=== PATIENT | male | born 1935 | race Caucasian/White ===

== ENCOUNTER 2020-09-01 15:28 | Inpatient (IN) | payer MEDICARE ==
[~2020-09-01] VITALS: Ht 177.8 cm; Wt 95.3 kg
--- NOTE | ~2020-09-01 | HEMODYNAMI ---
PATIENT:OLIVIER REID MEDICAL RECORD: [id number] : 33 LOCATION:D.MS [facility]9 ADMISSION DATE: 09/01/20 Generatedon:110:36 Patient name: OLIVIER REID Patient #: [id number] SSN: [id number] : 1935 Date of study: 09/04/2020 Page: Of Hemodynamic Procedure Report Patient Data Patient Demographics Procedure consent was obtained First Name: OLIVIER Gender: Male Last Name: JEANETTE : 1935 Patient #: [id number] Age: 85 year(s) Race: SSN: [id number] Additional ID: [id number] Contact details Address: [address] [place] [address] State: [place] City: [place] Zip code: [address] Past Medical History Allergies: No known allergies Admission Admission Data Admission Date: 09/01/2020 Admission Time: 19:10 Arrival Date: 09/04/2020 Arrival Time: 0:00 Admit Source: Other Insurance Payor: Medicare Room #: [id number] [facility] #: [id number] Height (in.): 70 BSA: 2.13 (m2) Height (cm.): 177.8 BMI: 30.19 (kg/m2) Weight (lbs.): 210.43 Weight (kg.): 95.45 Lab Results Lab Result Date: 09/04/2020 Lab Result Time: 0:00 Biochemistry Name Units Result Min Max BUN mg/dl 23 --(----)-* 7 18 CK-MB ng/ml 0.7 --(*---)-- 0 3.6 Creatinine mg/dl 1.6 --(----)-* 0.6 1.3 eGFR ml/min 44 *-(----)-- 90 120 NONAFRICAN Troponin l ng/ml 0.082 --(----)-* 0 0.06 CBC Name Units Result Min Max Hematocrit % 49 --(--*-)-- 42 54 Hemoglobin g/dl 15.8 --(--*-)-- 13.5 17.5 Procedure Procedure Types Cath Procedure Diagnostic Procedure [facility] w/Coronaries Sedation Charges Moderate Sedation 10-24 minutes Procedure Description Procedure Date Procedure Date: 09/04/2020 Procedure Start Time: 10:23 Procedure End Time: 10:35 Procedure Staff Name Function Alden Glasgow MD Performing Physician Deonte Evans RN Nurse Arelis Mendoza RT Scrub Linsey Garcia RT Monitor Procedure Data Cath Procedure Fluoroscopy Diagnostic fluoroscopy Total fluoroscopy Time: 1.4 time: 1.4 min min Diagnostic fluoroscopy Total fluoroscopy dose: 582 dose: 582 mGy mGy Contrast Material Contrast Material Type Amount (ml) Isovue 370 60 Entry Location Entry Primary Successful Side Size Upsize Upsize Entry Closure Succes sful Closure Location (Fr) 1 (Fr) 2 (Fr) Remarks Device Remarks Femoral Right 5 Fr Exoseal artery Estimated blood loss: 5 ml Diagnostic catheters Device Type Used For End Catheter Placement MULTIPACK JL 4.0 5Fr Procedure catheter DIAGNOSTIC JL 5 5Fr Procedure catheter ([id number]) MULTIPACK 3DRC 5Fr Procedure catheter MULTIPACK Pigtail 5 Fr Procedure catheter Procedure Complications No complications Procedure Medications Medication Administration Route Dosage 0.9% NaCl I.V. 100 ml/hr Oxygen etCO2 Nasal cannula 2 l/min Heparin Flush Bag added to field 2 bags (1000units/500ml NS) Lidocaine 2% added to field 20 Versed I.V. 1 mg Hemodynamics Rest BSA: 2.13 (m2) HGB: 15.8 (g/dl) O2 Consumption: Estimated: 251.86 (ml/min) O2 Co nsumption indexed: Estimated:118.24 (ml/min/m) Heart Rate: 83 (bpm) Pressure Samples Time Site Value (mmHg) Purpose Heart Use Rate(bpm) 10:31 AO 123/72(101) Pullback 79 Gradients Valve Time Site Site 2 Mean SEP/DFP Peak To Heart Use 1 (mmHg) (sec/min) Peak Rate (mmHg) (bpm) Aortic 10:31 LV AO 58 17 79 123/72(101) Calculations Valve P-P Mean Valve Index Valve Source Name Gradient Area Flow (cm2) Aortic 58 58 Snapshots Pre Cath Intra NCS Post Cath Vital Signs Time Heart Resp SPO2 etCO2 NIBP (mmHg) Rhythm Pain Sedation Rate (ipm) (%) (mmHg) Status Level (bpm) 10:11:43 72 29 99 0 117/82(94) NSR 0 (11) 10(A) , No pain 10:15:45 92 31 99 0 125/93(107) NSR 0 (11) 10(A) , No pain 10:19:53 79 28 92 0 120/76(91) NSR 0 (11) 10(A) , No pain 10:23:58 79 34 95 0 110/84(94) NSR 0 (11) 10(A) , No pain 10:28:04 79 25 97 18.1 114/71(87) NSR 0 (11) 9(A) , No pain 10:32:10 82 25 92 14.3 109/75(90) NSR 0 (11) 10(A) , No pain 10:36:09 97 37 93 0 124/88(103) NSR 0 (11) 10(A) , No pain Medications Time Medication Route Dose Verified Delivered Reason Notes Eff ectiveness by by 10:10:10 0.9% NaCl I.V. 100 Deonte Deonte Per ml/hr Nathan Evans physician RN RN 10:10:19 Oxygen etCO2 2 Deonte Deonte for low 02 Nasal l/min Nathan Evans sats cannula RN RN 10:10:30 Heparin Flush added 2 Deonte Deonte used for Bag to bags Nathan Evans procedure (1000units/500ml field RN RN NS) 10:10:42 Lidocaine 2% added 20ml Deonte Deonte for local to vial Nathan Evans anesthetic field RN RN 10:25:23 Versed I.V. 1 mg Deonte Deonte for Lorigan Nathan sedation RN caregiver services home Log Time Note 9:26:57 Informed consent obtained and on chart 9:27:15 Diagnostic Cath Status : Urgent 9:28:02 Lab Result : CK-MB 0.7 ng/ml 9:28:02 Lab Result : Troponin l 0.082 ng/ml 9:28:02 Lab Result : BUN 23 mg/dl 9:28:02 Lab Result : Creatinine 1.6 mg/dl 9:28:02 Lab Result : eGFR NONAFRICAN 44 ml/min 9:28:02 Lab Result : Hemoglobin 15.8 g/dl 9:28:02 Lab Result : Hematocrit 49 % 9:28:21 Arrival Date: 09/04/2020 12:00:00 AM 9:28:27 Admit Source: Other 9:28:30 Patient Height : 70 inches 9:28:35 Patient Weight : 210.43 lbs 9:28:40 Insurance Payor : Medicare 9:30:27 ACC Patient presents with Unstable Angina CCS Anginal Class 2--Slight limitation of ordinary activity. 9:30:31 Procedure Status Urgent Heart Cath (IP). 9:30:32 Time tracking: Regular hours (M-F 7:00 - 5:00) 9:30:39 Plan of Care:Hemodynamics will remain stable., Cardiac rhythm will remain stable., Comfort level will be maintained., Respiratory function will remain adequate., Patient/ family verbilizes understanding of procedure., Procedure tolerated without complication., Recovers from procedure without complications.. 9:30:52 H&P Date Dictated: 09/01/2020 Within 30 days and on chart.. 9:30:52 Pre-procedure instructions explained to patient. 9:30:53 Pre-op teaching completed and patient verbalized understanding. 9:30:56 Family unavailable. 9:30:59 Patient NPO since Midnight. 9:31:08 Patient allergic to No known allergies 9:31:24 Lab results completed and on chart. 9:31:28 Stress Test: no; N/A ? 9:31:30 Alarms reviewed by R. N. 9:31:30 Sharps counted by scrub and verified by R.N. 9:33:57 Risk of Mortality: 2.8 9:34:00 Risk of blood transfusion: 4.8 9:34:03 Risk of JESUS: 7.0 9:50:30 Deonte Evans RN sent for patient. Start room use. 10:00:58 Patient received from Med II to CCL 2 Alert and oriented. Tansferred to table in Supine position. 10:01:01 Warm blankets applied, and rick hugger turned on for patient comfort. 10:01:02 Correct patient and procedure confirmed by team. 10:01:02 ECG and BP/O2 sat monitors applied to patient. 10:10:10 0.9% NaCl 100 ml/hr I.V. was administered by Deonte Evans RN; Per physician; Verbal order read back and verified. 10:10:19 Oxygen 2 l/min etCO2 Nasal cannula was administered by Deonte Evans RN; for low 02 sats; Verbal order read back and verified. 10:10:30 Heparin Flush Bag (1000units/500ml NS) 2 bags added to field was administered by Deonte Evans RN; used for procedure; Verbal order read back and verified. 10:10:42 Lidocaine 2% 20ml vial added to field was administered by Deonte Evans RN; for local anesthetic; Verbal order read back and verified. 10:10:46 Vital chart was started 10:18:24 Baseline sample Acquired. 10:18:25 Full Disclosure recording started 10:18:28 Is the patient allergic to Iodine/contrast media? No. 10:18:30 Was the patient premedicated? Yes 10:18:32 Is patient on blood thinner?Yes 10:18:34 Patient diabetic? No. 10:18:36 If diabetic: On Metformin? N/A 10:18:37 ----Pre-sedation anethsthesia assessment.---- 10:18:40 Previous problem with sedation/anesthesia? No ? 10:19:09 Snore? Yes 10:19:11 Sleep apnea? Unknown 10:19:12 Deviated septum? No 10:19:13 Opens mouth fully? Yes 10:19:14 Sticks out tongue? Yes 10:19:19 Airway obstruction? Yes CHF 10:19:25 Patient pain scale 0/10 ?. 10:19:31 IV patent on arrival in left antecubital with 0.9% NaCl at [facility]. 10:19:35 Pre procedure: right dorsailis pedis pulse 1+ Palpable, but thready & weak; easily obliterated 10:19:41 Right groin area was prepped with chlora-prep and draped in sterile fashion 10:19:44 Use device set Femoral Dx 10:19:52 Rhythm: sinus rhythm 10:19:56 --------ALL STOP TIME OUT------ 10:19:57 Final Timeout: patient, procedure, and site verified with staff and physician. All members of the team are in agreement. 10:19:59 Right groin site verified by team. 10:20:06 Fire Safety Assessment: A--An alcohol-based skin anteseptic being used preoperatively., C--Open oxygen or nitrous oxide is being used., D--An ESU, laser, or fiber-optic light is being used. 10:20:09 Physical assessment completed. ASA score P 2 - A patient with mild systemic disease as per Alden Glasgow MD. 10:20:12 3a) 45-59 Moderately reduced kidney function. 10:20:14 Maximum allowable contrast dose (3.7 X eGFR X 0.75)133 ml. 10:20:18 Sedation plan: IV Moderate Sedation Medication:Versed, Fentanyl 10:20:32 ACIST Syringe (72494) opened to sterile field. 10:20:33 Bag Decanter (2002S) opened to sterile field. 10:20:33 Medline Cath Pack ([id number]) opened to sterile field. 10:20:34 ACIST Hand Control (84780) opened to sterile field. 10:20:34 ACIST Manifold (20161) opened to sterile field. 10:20:35 DIAGNOSTIC Multipack 5Fr catheter set (VO2032) opened to sterile field. 10:20:37 SHEATH 5FR [place] (YTR447) opened to sterile field. 10:20:37 EMERALD Guide Wire (806-597) opened to sterile field. 10:23:25 Procedure started. 10:23:29 Local anesthetic to right femoral artery with Lidocaine 2% by Alden Glasgow MD.INITIAL ACCESS ONLY 10:24:35 A 5 Fr sheath was inserted into the Right Femoral artery 10:25:09 A MULTIPACK JL 4.0 5Fr catheter was advanced over the wire and used for Procedure. 10:25:23 Versed 1 mg I.V. was administered by Deonte Evans RN; for sedation; Verbal order read back and verified. 10:26:00 UNABLE TO ENGAGE LCA. 10:26:04 Catheter removed. 10:26:34 A DIAGNOSTIC JL 5 5Fr catheter ([id number]) was advanced over the wire and used for Procedure. 10:26:47 LCA angiography performed. 10::49 Injector settings: Ml/sec: 3, Volume: 6, 10:28:21 Catheter removed. 10:28:27 A MULTIPACK 3DRC 5Fr catheter was advanced over the wire and used for Procedure. 10:28:56 RCA angiography performed. 10::58 Injector settings: Ml/sec: 3, Volume: 6, 10:29:25 ACCDominant side:Left 10:29:27 Catheter removed. 10:29:34 A MULTIPACK Pigtail 5 Fr catheter was advanced over the wire and used for Procedure. 10:30:22 LV gram done using BAEZ 10:31:07 Injector settings: Ml/sec: 5, Volume: 15, 10:31:08 LV hemodynamics recorded. 10:31:17 EF : 15 % 10:31:37 Catheter removed. 10:31:42 Tegaderm 4 x 4 (1626W) opened to sterile field. 10:31:44 EXOSEAL 5Fr (EX500) opened to sterile field. 10:31:53 Zero performed for pressure channel P1 10:32:18 Sheath removed intact; hemostasis achieved with Exoseal to the Right Femoral artery. 10:32:27 Fluoroscopy time 01.40 minutes. 10:32:30 Fluoroscopy dose: 582 mGy 10:32:30 Flurop Dose total: 582 10:32:35 Dose Area Product 10841 mGy/cm. 10:32:58 Procedure ended.(Physican Out) 10:33:24 Contrast amount:Isovue 370 60ml. 10:33:26 Maximum allowable dose exceeded? No. 10:33:27 Sharps counted by scrub and verified by R.N. 10:33:32 Post-op/insertion site Right Femoral artery dressed using a 4 x 4 and Tegaderm. 10:33:37 Post right femoral artery:stable, soft, clean and dry 10:33:39 Post Procedure Pulses reassessed and unchanged 10:33:42 Post procedure: right dorsailis pedis pulse 1+ Palpable, but thready & weak; easily obliterated. 10:33:45 Post-procedure physical assessment completed. ASA score P 2 - A patient with mild systemic disease as per Alden Glasgow MD. 10:33:48 Post procedure rhythm: unchanged. 10:33:51 Estimated blood loss: 5 ml 10:33:52 Post procedure instruction explained to patient.Patient verbalizes understanding. 10:33:53 Patient needs reinforcement of post procedure teaching. 10:34:25 Procedure type changed to Cath procedure, Diagnostic procedure, LHC, LHC w/Coronaries, Sedation Charges, Moderate Sedation 10-24 minutes 10:34:27 Procedure and supply charges have been captured, reviewed, submitted and are correct. 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 10:35:44 See physician's report for complete and final results. 10:35:46 Report given to [facility]. 10:35:50 Patient transfered to [facility] with Bed. 10:35:52 Procedure ended. 10:35:52 Full Disclosure recording stopped 10:36:02 End room use (Document Last) 10:36:15 End room use (Document Last) 10:36:31 End room use (Document Last) 10:36:47 Vital chart was stopped Device Usage Item Name Manufacture Quantity Catalog Hospital Part Current Minimal L ot# / Number Charge Number Stock Stock Serial# Code ACIST Acist 1 98872 857835 329360 809353 20 Syringe Medical (93094) Systems Inc Bag Microtek 1 803313 59811 238636 5 Decanter Medical Inc. () Medline Medline 1 [id number] 892982 69304 179706 5 Cath Pack ([id number]) ACIST Hand Acist 1 14628 276984 256134 476682 5 Control Medical (17187) Systems Inc ACIST Acist 1 95088 827565 615312 492431 5 Manifold Medical (63502) Systems Inc DIAGNOSTIC Cardinal 1 FO9436 074677 64964 913670 30 Multipack Health 5Fr catheter set (LF9964) SHEATH 5FR Terumo 1 ZZK192 964863 737428 258526 5 [place] (ARA863) EMERALD Cardinal 1 502-455 294794 848723 070588 5 Guide Wire Health (502455) MULTIPACK Cardinal 1 604319 5 JL 4.0 5Fr Health catheter DIAGNOSTIC Cardinal 1 [id number] 662967 486755 732829 5 JL 5 5Fr Health catheter (418568E) MULTIPACK Cardinal 1 437927 5 3DRC 5Fr Health catheter MULTIPACK Cardinal 1 753399 5 Pigtail 5 Health Fr catheter Tegaderm 4 3M 1 1626W 213484 006019 137757 5 x 4 (1626W) EXOSEAL 5Fr Cardinal 1 EX500 884709 727670 200443 10 (EX500) Health Signature Audit [place] Stage Time Signature Unsigned Intra-Procedure 09/04/2020 Linsey Garcia 10:36:15 AM RT(R) Intra-Procedure 09/04/2020 Deonte 10:36:31 AM Lorigan RN Intra-Procedure 09/04/2020 Alden Funk 10:36:45 AM Singh PEREZ Signatures Performing Physician : Signature : Alden Glasgow MD Date : Time : Nurse : Deonte Lorigan Signature : RN Date : Time : Monitor : Linsey Garcia Signature : RT Date : Time : [address] [address]
[~2020-09-01 15:28] MED LIST: FUROSEMIDE40 MG PO; PLAVIX75 MG PO
[2020-09-01] MEDS ORDERED: UNK CHOLESTEROL MED (16:26)
[2020-09-01 16:40] LABS: BASOPHILS 0.1 % (0-2); EOSINOPHILS 0.8 % (0-7); HEMATOCRIT 47.1 % (42.0-54.0); HEMOGLOBIN 15.3 g/dL (13.5-17.5); IMMATURE GRANULOCYTES 0.1 % (0-5); LYMPHOCYTES 27.2 % (15-50); MCH 27.6 pg (26.0-34.0); MCHC 32.5 g/dL (31.0-37.0); MCV 84.9 fL (80.0-100.0); MEAN PLATELET VOLUME 12.1 fL (7.4-10.4); NEUTROPHIL ABS# 4.92 10x3/uL (1.78-5.38); NEUTROPHILS 63.8 % (40-80); PLATELET COUNT 148 10x3/uL (130-400); RBC 5.55 10x6/uL (4.20-6.10); RDW 15.4 % (11.5-14.5); WBC 7.7 10x3/uL (4.8-10.8)
[2020-09-01 16:51] LABS: CALC OSMOLALITY 286 mosm/kg (275-300); CALCIUM 8.8 mg/dL (8.5-10.1); CARBON DIOXIDE 27.6 mmol/L (21.0-32.0); CHLORIDE - SERUM 105 mmol/L (98-107); CREATININE - SERUM 1.7 mg/dL (0.6-1.3); GLUCOSE 114 mg/dL (74-106); POTASSIUM - SERUM 3.1 mmol/L (3.5-5.1); SODIUM 141 mmol/L (136-145); UREA NITROGEN 26 mg/dL (7-18); eGFR NON AFRICAN AMERICAN 41 mL/min (90-120)
[2020-09-01 16:52] LABS: APTT 33.4 SECONDS (22.8-39.4); INR 1.37 (0.85-1.17); PROTIME 15.6 SECONDS (11.6-15.0)
--- NOTE | 2020-09-01 17:02 | NUR ---
RT NOTIFIED OF ABG AT THIS TIME.
[2020-09-01 17:13] LABS: ALBUMIN 3.4 g/dL (3.4-5.0); ALKALINE PHOSPHATASE 112 U/L (30-120); ALT (SGPT) 15 U/L (10-68); BILIRUBIN - TOTAL 1.19 mg/dL (0.2-1.3); CKMB 0.7 U/L (0.0-3.6); CREATINE KINASE 40 UL (21-232); PRO BNP 3870 pg/mL (0-450); PROTEIN - SERUM 7.2 g/dL (6.4-8.2)
[2020-09-01 17:14] LABS: TROPONIN-I 0.074 ng/mL (0.000-0.060)
[2020-09-01 17:23] LABS: MAGNESIUM - SERUM 1.8 mg/dL (1.8-2.4)
[2020-09-01 22:00] VITALS: BP 119/76
[2020-09-01 23:00] VITALS: BP 108/73
[2020-09-02] VITALS (10 sets, daily range): BP systolic 102–1112; BP diastolic 66–86; BMI 30.1
[2020-09-02 07:14] LABS: BASOPHILS 0.2 % (0-2); EOSINOPHILS 0.8 % (0-7); IMMATURE GRANULOCYTES 0.2 % (0-5); LYMPHOCYTE ABS# 2.32 10x3/uL (1.32-3.57); LYMPHOCYTES 38.5 % (15-50); MCH 27.3 pg (26.0-34.0); MCHC 32.4 g/dL (31.0-37.0); MCV 84.1 fL (80.0-100.0); MEAN PLATELET VOLUME 12.5 fL (7.4-10.4); MONOCYTES 7.8 % (2-11); NEUTROPHIL ABS# 3.17 10x3/uL (1.78-5.38); NEUTROPHILS 52.5 % (40-80); RDW 15.6 % (11.5-14.5)
[2020-09-02 07:15] LABS: HEMATOCRIT 36.1 % (42.0-54.0); HEMOGLOBIN 11.7 g/dL (13.5-17.5); PLATELET COUNT 113 10x3/uL (130-400); RBC 4.29 10x6/uL (4.20-6.10)
[2020-09-02 07:47] LABS: ALBUMIN 2.6 g/dL (3.4-5.0); ALKALINE PHOSPHATASE 86 U/L (30-120); BILIRUBIN - TOTAL 1.19 mg/dL (0.2-1.3); CALC OSMOLALITY 292 mosm/kg (275-300); CALCIUM 7.7 mg/dL (8.5-10.1); CARBON DIOXIDE 26.1 mmol/L (21.0-32.0); CHLORIDE - SERUM 110 mmol/L (98-107); CKMB 0.9 U/L (0.0-3.6); CREATINE KINASE 34 UL (21-232); CREATININE - SERUM 1.4 mg/dL (0.6-1.3); GLUCOSE 88 mg/dL (74-106); MAGNESIUM - SERUM 1.6 mg/dL (1.8-2.4); PHOSPHOROUS 3.9 mg/dL (2.5-4.9); PROTEIN - SERUM 6.1 g/dL (6.4-8.2); SODIUM 146 mmol/L (136-145); UREA NITROGEN 22 mg/dL (7-18); eGFR NON AFRICAN AMERICAN 51 mL/min (90-120)
[2020-09-02 07:59] LABS: ALT (SGPT) 7 U/L (10-68); POTASSIUM - SERUM 3.6 mmol/L (3.5-5.1)
--- NOTE | 2020-09-02 10:12 | NUR ---
SON NOTIFIED OF PATIENT STATUS WITH PATIENT PERMISSION.
--- NOTE | 2020-09-02 12:22 | NUR ---
PATIENT RESTING WITH EYES CLOSED AND RESPIRATIONS EVEN AND UNLABORED.
--- NOTE | 2020-09-02 12:30 | NUR ---
PT REPORTS SOB, MIDSTERNAL CP, AND WEAKNESS THAT IS SUDDEN AND SEVERE. VS STABLE, O2 SATURATION 100% ON 2L NC, EKG PERFORMED AT [address] GAUTHIER WHO WAS ON THE FLOOR. VERBAL ORDER FOR NITRO PASTE PRN FOR CP RECEIVED. WILL REASSESS.
[2020-09-02 15:17] LABS: CKMB 0.5 U/L (0.0-3.6); CREATINE KINASE 25 UL (21-232); TROPONIN-I 0.077 ng/mL (0.000-0.060)
--- NOTE | 2020-09-02 17:45 | NUR ---
ATTEMPTED PATIENT REPORT.
--- NOTE | 2020-09-02 18:50 | NUR ---
REPORT CALLED TO HANK GO AT THIS TIME.
--- NOTE | 2020-09-02 19:30 | NUR ---
RECEIVED TO ROOM FOR ER VIA [facility]. ALERT,ORIENTED. SL TO RFA INTACT WITHOUT REDNESS OR EDEMA NOTED. LANCASTER PATENT AND DRAINING STRAW YELLOW URINE.ORIENTED TO ROOM. CL IN REACH
[2020-09-02 20:45] LABS: CKMB 0.7 U/L (0.0-3.6); CREATINE KINASE 31 UL (21-232)
[2020-09-02 20:53] LABS: TROPONIN-I 0.081 ng/mL (0.000-0.060)
[2020-09-03 01:02] VITALS: BP 113/62
[2020-09-03 03:03] LABS: BASOPHILS 0.1 % (0-2); LYMPHOCYTE ABS# 2.53 10x3/uL (1.32-3.57); LYMPHOCYTES 37.3 % (15-50); MCH 27.3 pg (26.0-34.0); MCHC 32.1 g/dL (31.0-37.0); MCV 84.9 fL (80.0-100.0); MEAN PLATELET VOLUME 12.2 fL (7.4-10.4); NEUTROPHIL ABS# 3.63 10x3/uL (1.78-5.38); NEUTROPHILS 53.6 % (40-80); RDW 15.6 % (11.5-14.5); WBC 6.8 10x3/uL (4.8-10.8)
[2020-09-03 03:09] LABS: HEMATOCRIT 46.1 % (42.0-54.0); HEMOGLOBIN 14.8 g/dL (13.5-17.5); PLATELET COUNT 150 10x3/uL (130-400); RBC 5.43 10x6/uL (4.20-6.10)
[2020-09-03 03:38] LABS: CALC OSMOLALITY 294 mosm/kg (275-300); CALCIUM 8.4 mg/dL (8.5-10.1); CARBON DIOXIDE 30.1 mmol/L (21.0-32.0); CHLORIDE - SERUM 107 mmol/L (98-107); CKMB 0.6 U/L (0.0-3.6); CREATINE KINASE 27 UL (21-232); CREATININE - SERUM 1.6 mg/dL (0.6-1.3); GLUCOSE 84 mg/dL (74-106); MAGNESIUM - SERUM 1.7 mg/dL (1.8-2.4); POTASSIUM - SERUM 3.5 mmol/L (3.5-5.1); SODIUM 147 mmol/L (136-145); UREA NITROGEN 23 mg/dL (7-18); eGFR NON AFRICAN AMERICAN 44 mL/min (90-120)
[2020-09-03 03:44] LABS: TROPONIN-I 0.084 ng/mL (0.000-0.060)
[2020-09-03 04:44] VITALS: BP 113/76
[2020-09-03 10:34] VITALS: BP 122/83
[2020-09-03 11:00] VITALS: BP 120/70
[2020-09-03 11:56] LABS: CHOL - HDL RATIO 3.2 ratio (2.3-4.9); LDL-HDL RATIO 1.8 ratio (1.5-3.5)
[2020-09-03 14:30] LABS: CKMB 0.8 U/L (0.0-3.6); CREATINE KINASE 33 UL (21-232)
[2020-09-03 14:36] LABS: TROPONIN-I 0.077 ng/mL (0.000-0.060)
[2020-09-03 16:00] VITALS: BP 116/89
[2020-09-03 19:00] LABS: CKMB 0.7 U/L (0.0-3.6); CREATINE KINASE 34 UL (21-232)
[2020-09-03 19:11] LABS: TROPONIN-I 0.082 ng/mL (0.000-0.060)
[2020-09-03 19:58] VITALS: BP 124/89
--- NOTE | 2020-09-03 20:00 | NUR ---
AWAKE,ALERT,NO COMPLAITNS AT PRESENT.O2 @ 2L PER NC ON. NO DISTRESS NOTED. SL TO RAC INTACT WITHOUT REDNESS OR EDEMA NOTED. LANCASTER PATENT AND DRAINING DARK ANUJ URINE. FAMILY AT BEDSIDE.
[2020-09-04 03:26] LABS: BASOPHILS 0.3 % (0-2); EOSINOPHILS 1.2 % (0-7); HEMOGLOBIN 15.8 g/dL (13.5-17.5); IMMATURE GRANULOCYTES 0.3 % (0-5); LYMPHOCYTE ABS# 3.12 10x3/uL (1.32-3.57); LYMPHOCYTES 41.1 % (15-50); MCH 27.6 pg (26.0-34.0); MCHC 32.2 g/dL (31.0-37.0); MCV 85.7 fL (80.0-100.0); NEUTROPHIL ABS# 3.74 10x3/uL (1.78-5.38); NEUTROPHILS 49.1 % (40-80); RBC 5.72 10x6/uL (4.20-6.10); RDW 16.7 % (11.5-14.5); WBC 7.6 10x3/uL (4.8-10.8)
[2020-09-04 03:28] LABS: PLATELET COUNT 182 10x3/uL (130-400)
[2020-09-04 03:57] LABS: CALC OSMOLALITY 282 mosm/kg (275-300); CALCIUM 8.1 mg/dL (8.5-10.1); CARBON DIOXIDE 23.4 mmol/L (21.0-32.0); CHLORIDE - SERUM 105 mmol/L (98-107); CKMB 0.6 U/L (0.0-3.6); CREATINE KINASE 90 UL (21-232); CREATININE - SERUM 1.6 mg/dL (0.6-1.3); GLUCOSE 98 mg/dL (74-106); MAGNESIUM - SERUM 1.7 mg/dL (1.8-2.4); PHOSPHOROUS 3.8 mg/dL (2.5-4.9); SODIUM 140 mmol/L (136-145); TROPONIN-I 0.056 ng/mL (0.000-0.060); UREA NITROGEN 23 mg/dL (7-18); eGFR NON AFRICAN AMERICAN 44 mL/min (90-120)
[2020-09-04 04:02] LABS: POTASSIUM - SERUM 4.4 mmol/L (3.5-5.1)
[2020-09-04 06:24] VITALS: BP 92/53
--- NOTE | 2020-09-04 07:15 | NUR ---
REC'D IN BED AWAKE AND ALERT. RESP EVEN AND UNLABORED WITH NO DISTRESS NOTED. CAN EXPRESS NEEDS AND WANT. NO C/O NOTED OR VOICED. ASSESSMENT COMPLETED. C/L IN REACH AT BEDSIDE.
[2020-09-04 09:13] VITALS: BP 113/81
--- NOTE | 2020-09-04 12:21 | NUR ---
I have reviewed this patient and I concur with the Shift Assessment completed by the Licensed Practical Nurse today this shift.
[2020-09-04 14:12] VITALS: BP 106/71
--- NOTE | 2020-09-04 15:51 | NUR ---
SPOKE WITH HOSPITAL NURSE LIAISON ABOUT DC LANCASTER CATH D/T PT C/O IT'S HURTING AND HE CONTINUOUSLY GETTING UP AND PULLING CATH. .
--- NOTE | 2020-09-04 16:18 | NUR ---
LANCASTER DC AT THIS TIME WITH ANUJ COLOR URINE NOTED TO COLLECTION DEVICE. C/L IN REACH AT BEDSIDE.
--- NOTE | 2020-09-04 17:44 | NUR ---
THIS NURSE WAS INFORMED BY ANOTHER NURSE ON DUTY THAT PT WAS BLEEDING FROM PENIS. THE PT HAD PRIOR TRIED TO REINSERT HIS LANCASTER CATH. REDIRECTION WAS GIVEN WITH MINIMAL SUCCESS NOTED. PT WAS CLEANED UP. ROTARY BAR OPERATOR WAS NOTIFIED AND AWAITING RESPONSE. C/L IN REACH AT BEDSIDE.
--- NOTE | 2020-09-04 17:59 | NUR ---
PT REFUSED TO LEAVE TELEMETRY ON EVERYTIME IT'S PLACED ON PT REMOVES IT. REC'D ORDERS FROM OPEN HEARTH HELPER CABLE TELEVISION TECHNICIAN TO DC TELEMETRY AND CONTINUE TO MONITOR THE BLEEDING.
--- NOTE | 2020-09-04 20:30 | NUR ---
PTs FAMILY REPORTS PT SELF CATHS AT HOME. IN&OUT CATH KIT GIVEN WITH INSTRUCTIONS, PT REPORTS HE IS AWARE OF HOW TO USE. CTM
[2020-09-04 21:36] VITALS: BP 133/82
--- NOTE | 2020-09-04 22:00 | NUR ---
PT REPORTS HE HAD SELF CATHED. 450MLs BROWN URINE IN BAG. APPEARS PT DID NOT OPEN OR USE GLOVES, IODINE SWABS, OR LUBE. FURTHER INSTRUCTIONS GIVEN. INFORMED PT I WOULD THROW AWAY THIS USED CATH AND BAG AND GRAB NEW ONE. PT STATED, "IF YOU DONT BRING A NEW ONE, IM JUST GOING TO DIG THAT ONE OUT." TRASH REMOVED FROM ROOM AND NEW CATH KIT GIVEN. INFECTION RISK TEACHING GIVEN TO PT. PT STILL REFUSING LASIX, STATES IT MAKES HIM HAVE TO PEE TOO MUCH. MONITOR CLOSELY.
[2020-09-05] VITALS: BP 109/81
--- NOTE | 2020-09-05 01:00 | NUR ---
PT FOUND WANDERING HALLS, STATES HE RENTED THIS ROOM, HE CAN DO WHAT HE WANTS. ATTEMPTED REORIENTATION, REDIRECTED TO ROOM. NORMA ALARM ON, CTM.
--- NOTE | 2020-09-05 02:54 | NUR ---
I have reviewed this patient and I concur with the Shift Assessment completed by the Licensed Practical Nurse today this shift.
[2020-09-05 05:39] VITALS: BP 177/74
[2020-09-05 07:36] LABS: ANION GAP 16.3 mmol/L (8-16); CALCIUM 8.2 mg/dL (8.5-10.1); CARBON DIOXIDE 26.6 mmol/L (21.0-32.0); CREATININE - SERUM 1.9 mg/dL (0.6-1.3); MAGNESIUM - SERUM 1.7 mg/dL (1.8-2.4); PHOSPHOROUS 4.3 mg/dL (2.5-4.9); POTASSIUM - SERUM 3.9 mmol/L (3.5-5.1)
[2020-09-05 07:45] LABS: BASOPHILS 0.1 % (0-2); EOSINOPHILS 0 % (0-7); HEMATOCRIT 41.3 % (42.0-54.0); HEMOGLOBIN 13.3 g/dL (13.5-17.5); IMMATURE GRANULOCYTES 0.3 % (0-5); LYMPHOCYTES 14.8 % (15-50); MCH 27.3 pg (26.0-34.0); MCHC 32.2 g/dL (31.0-37.0); MCV 84.8 fL (80.0-100.0); MONOCYTES 7.1 % (2-11); NEUTROPHIL ABS# 8.38 10x3/uL (1.78-5.38); NEUTROPHILS 77.7 % (40-80); RBC 4.87 10x6/uL (4.20-6.10); RDW 15.4 % (11.5-14.5)
[2020-09-05 07:46] LABS: PLATELET COUNT 140 10x3/uL (130-400); WBC 10.8 10x3/uL (4.8-10.8)
[2020-09-05 08:32] VITALS: BP 107/74
[2020-09-05 13:02] VITALS: BP 93/55
[2020-09-05 13:12] VITALS: BMI 30.1
--- NOTE | 2020-09-05 14:05 | NUR ---
PATIENT IS PLEASANTLY CONFUED. WANTS TO KNOW WHY I HAVE CHANGED HIS ROOMS AGAIN. PT HAS UA ORDERED, EXPLINED TO PATIENT I WILL NEED TO GET A SAMPLE, PATIENT STATES HE CAN DO IT HIMSELF. PATIET SELF CATHS AND REFUSES TO LET ME DO AN IN AND OUT AT THIS TIME. WILL ALLOW PATIENT TO CALM DOWN AND RETURN AND TRY AGAIN
--- NOTE | 2020-09-05 14:30 | OP ---
PATIENT NAME: OLIVIER REID MEDICAL RECORD: [id number] :33 LOCATION:D.MS [facility]9 ADMISSION DATE:09/01/20 SURGEON: GUALBERTO LEAL MD DATE OF OPERATION: 09/04/2020 PROCEDURES: Left heart catheterization, selective coronary angiography, right femoral artery approach. CATHETERS: A 5-Slovenian sheath, 5/4 left and right Tiara, 5/4 pig. The procedure was well tolerated. The patient was returned to the cortez. Sheath removed. ExoSeal device placed. FINDINGS: Left ventriculography shows severe global hypokinesis, reduced EF, estimated EF 15% to 20%. LVEDP is elevated at 25 mmHg. CORONARY ANATOMY: LEFT MAIN: Left main is free of disease. LAD: An area of previous stent is widely patent. 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 RIGHT CORONARY ARTERY: Totally occluded, fills well via left to right collaterals. IMPRESSION AND PLAN: Severe cardiomyopathy. No role for intervention here. For medical management of myopathy, we will start carvedilol as well as Aldactone, perhaps add ARB or Entresto in the near future. TRANSINT:[id number] Voice Confirmation ID: [id number] DOCUMENT ID: [id number] GUALBERTO LEAL MD at 1430 CC: [id number] DICTATION DATE: 09/04/20 1044 BOAT CLEANER: 09/04/20 1631 ADM IN [address] [place] [address]
--- NOTE | 2020-09-05 15:35 | NUR ---
ABLE TO OBTAIN UA FROM PATIENT, PATIENT IS SITTING UP IN CHAIR AT BEDSIDE, STATES" THERE IS SOMETHING FISHY GOING ON, AND I'M GOING TO GET TO THE BOTTOM OF IT." REORIENTED PATIENT BACK TO ROOM IN HOSPITAL PATIENT STATES HE KNOWS HE IS IN THE HOSPITAL AND IT'S THE DOCTORS HE DOESN'T TRUST AND I MAY BE CONSPIRING WELL. AGAIN TOLD PATIENT HE IS IN HOSPITAL AND WE ARE TAKING CARE OF HIM. COONTINUE WITH PLAN OF CARE
[2020-09-05 15:53] LABS: BILIRUBIN NEGATIVE (NEGATIVE); KETONE NEGATIVE (NEGATIVE); NITRITE POSITIVE (NEGATIVE); UROBILINOGEN NORMAL mg/dL (< 2)
[2020-09-05 15:54] LABS: BACTERIA MODERATE HPF (NONE SEEN); WHITE CELLS - URINE >50 HPF (0-1)
[2020-09-05 18:57] VITALS: BP 127/87
--- NOTE | 2020-09-05 19:00 | NUR ---
REPORT GIVEN BY EMANUEL ODELL
--- NOTE | 2020-09-05 19:00 | NUR ---
REPORT GIVEN BY EMANUEL ODELL.
--- NOTE | 2020-09-05 19:25 | NUR ---
ASSESSMENT COMPLETED. PT IS NOT CONFUSED AT THIS TIME. HE HAS A SL IN R AC. HE HAS 2L O2 WHEN HE WEARS IT. DURING THIS TIME WITH HIM I NOTICED THAT HE SEEMED A LITTLE SOB. HIS 02 WAS IN THE CHAIR BESIDE HIS BED. I TOLD HIM I THOUGHT HE NEEDED TO WEAR IT AND HE HAS IT ON NOW. HE IS WALKING AROUND IN HIS ROOM. NO C/O AT THIS TIME.
[2020-09-05 20:00] VITALS: BP 95/63
--- NOTE | 2020-09-05 20:22 | NUR ---
IN ROOM FOR MEDS. HE TAKES THEM WELL. NO C/O AT THIS TIME. HE IS GETTING READY TO GO TO BED.
--- NOTE | 2020-09-06 01:33 | NUR ---
RESTING QUIETLY WITHOUT C/O
--- NOTE | 2020-09-06 01:34 | NUR ---
PT IS RESTING QUIETLY WITHOUT C/O
[2020-09-06 04:00] VITALS: BP 84/52
--- NOTE | 2020-09-06 06:27 | NUR ---
PT IS RESTING QUIETLY IN BED. NO NEW C/O
[2020-09-06 07:20] LABS: BASOPHILS 0.1 % (0-2); EOSINOPHILS 0.3 % (0-7); HEMATOCRIT 41.9 % (42.0-54.0); HEMOGLOBIN 13.5 g/dL (13.5-17.5); IMMATURE GRANULOCYTES 0.1 % (0-5); LYMPHOCYTE ABS# 2.11 10x3/uL (1.32-3.57); LYMPHOCYTES 28.2 % (15-50); MCH 26.8 pg (26.0-34.0); MCHC 32.2 g/dL (31.0-37.0); MCV 83.1 fL (80.0-100.0); MONOCYTES 7.5 % (2-11); NEUTROPHIL ABS# 4.78 10x3/uL (1.78-5.38); NEUTROPHILS 63.8 % (40-80); PLATELET COUNT 124 10x3/uL (130-400); RBC 5.04 10x6/uL (4.20-6.10); RDW 15.5 % (11.5-14.5)
[2020-09-06 07:21] LABS: WBC 7.5 10x3/uL (4.8-10.8)
[2020-09-06 07:24] LABS: ANION GAP 14.8 mmol/L (8-16); CALCIUM 8.3 mg/dL (8.5-10.1); CARBON DIOXIDE 25.3 mmol/L (21.0-32.0); MAGNESIUM - SERUM 1.8 mg/dL (1.8-2.4); PHOSPHOROUS 4.1 mg/dL (2.5-4.9); POTASSIUM - SERUM 4.1 mmol/L (3.5-5.1)
[2020-09-06 08:44] VITALS: BP 103/69
--- NOTE | 2020-09-06 10:08 | MORECARE ---
CASE MANAGEMENT DISCHARGE SUMMARY PATIENT: OLIVIER REID UNIT: [id number] ADM DATE: 09/01/20 AGE: 85 : [birth year] SEX: M ROOM/BED: D.2209 AUTHOR: RMDOC PHYSICIAN: REFERRING PHYSICIAN: NIMO HAMILTON MD DATE OF SERVICE: 09/06/20 Discharge Plan Patient Name: OLIVIER REID Facility: [facility]:[place] : 1935 Planned Disposition: Home with Home Health Anticipated Discharge Date: Discharge Date: Expected LOS: Initial Reviewer: [email or web address] Initial Review Date: 09/01/2020 Generated: 09/06/20 11:07 am DCPIA - Discharge Planning Initial Assessment Updated by [email or web address]: Leisa Drew on 09/06/20 10:03 am * Is the patient Alert and Oriented? Yes * How many steps to enter\exit or inside your home? 3/rails * [facility]CP [facility] * Preadmission Environment Home with Family * ADLs Partial Dependent * Partial ADLs (Assistance needed) Medication Management * Equipment Cane Rolling Walker * List name and contact numbers for known caregivers / representatives who currently or will assist patient after discharge: ÁNGELA REID ( SON) [phone] * Verbal permission to speak to the caregivers and representatives has been obtained from the patient. N/A * Community resources currently utilized None [facility] Services * Additional services required to return to the preadmission environment? Yes * Can the patient safely return to the preadmission environment? Yes * Has this patient been hospitalized within the prior 30 days at any hospital? Yes Coverage Notice Reviewer: [email or web address] Denisa Drew Notice Issued Date-Time: 09/06/2020 9:25 Notice Type: IM Discharge Notice Notice Delivered To: Patient Relationship to Patient: Owner Spa Director Name: Delivery Method: HAND - Hand Delivered Brina Days: Prior Verbal Notification: Recipient Understood Notice: Yes Recipient Signature: Yes Med Rec Note Co-signed by Attending: Coverage Notice Comment: imm served and explained Reviewer: [email or web address] Denisa Drew Notice Issued Date-Time: 09/06/2020 9:25 Notice Type: Patient Choice Letter Notice Delivered To: Patient Relationship to Patient: Owner Spa Director Name: Delivery Method: HAND - Hand Delivered Brina Days: Prior Verbal Notification: Recipient Understood Notice: Yes Recipient Signature: Yes Med Rec Note Co-signed by Attending: Coverage Notice Comment: [facility], [facility] Patient Name: OLIVIER REID Page [phone] at 1008 All edits/amendments must be made on the electronic document DICTATION DATE: 09/06/20 1008 DIRECTOR PHYSICAL THERAPY: YI 09/06/20 1008 RPT#: [id number] DC DATE: STATUS: ADM IN [facility] [address] [place] [address] END OF REPORT
--- NOTE | 2020-09-06 10:30 | MORECARE ---
CASE MANAGEMENT DISCHARGE SUMMARY PATIENT: OLIVIER REID UNIT: [id number] ADM DATE: 09/01/20 AGE: 85 : 34 SEX: M ROOM/BED: D.2209 AUTHOR: RAQUEL ABDALLA PHYSICIAN: REFERRING PHYSICIAN: NIMO HAMILTON MD DATE OF SERVICE: 09/06/20 Discharge Plan Patient Name: OLIVIER REID Facility: [facility]:[place] : 1935 Planned Disposition: Home with Home Health Anticipated Discharge Date: Discharge Date: Expected LOS: Initial Reviewer: [email or web address] Initial Review Date: 09/01/2020 Generated: 09/06/20 11:29 am Comments DCP- Discharge Planning Updated by [email or web address]: Leisa Drew on 09/06/20 9:[address] Patient Name: OLIVIER REID Admission Status: ER Accout number: [id number] Admission Date: 09-01-2020 : 1935 Admission Diagnosis: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 CM educated patient on the CM role and verbal consent given by patient to complete assessment. Patient lives at home in a camper on his son's property where he states that he is pretty independent with his care. He still drives at home. He said that his son helps him with his medications. At discharge patient plans to return home and feels this is a safe discharge. CM discussed availability of home health, rehab services, and medical equipment. I spoke with him about inpatient rehab at [facility]. I encouraged him to think about going to rehab. He thinks he is fine to go home and is agreeable to home health. UMER with [facility]. He said that his son will be his national dedicated truck driver home when he is discharge. He has a walker and a cane. [facility] served and explained & UMER signed for [facility] . Patient denied known discharge needs at this time. CM will continue to follow and will assist as needed with dc plans/needs. Senior Grants Officer: Leisa Drew DCPIA - Discharge Planning Initial Assessment Updated by [id number]: Leisa Drew on 09/06/20 10:03 am * Is the patient Alert and Oriented? Yes * How many steps to enter\exit or inside your home? 3/rails * PCP VA * Pharmacy [facility] * Preadmission Environment Home with Family * ADLs Partial Dependent * Partial ADLs (Assistance needed) Medication Management * Equipment Cane Rolling Walker * List name and contact numbers for known caregivers / representatives who currently or will assist patient after discharge: ÁNGELA REID ( SON) [phone] * Verbal permission to speak to the caregivers and representatives has been obtained from the patient. N/A * Community resources currently utilized None VA Services * Additional services required to return to the preadmission environment? Yes * Can the patient safely return to the preadmission environment? Yes * Has this patient been hospitalized within the prior 30 days at any hospital? Yes Coverage Notice Reviewer: [email or web address] Denisa Drew Notice Issued Date-Time: 09/06/2020 9:25 Notice Type: IM Discharge Notice Notice Delivered To: Patient Relationship to Patient: Air Hose Coupler Name: Delivery Method: HAND - Hand Delivered Brina Days: Prior Verbal Notification: Recipient Understood Notice: Yes Recipient Signature: Yes Med Rec Note Co-signed by Attending: Coverage Notice Comment: imm served and explained Reviewer: [id number] Denisa Drew Notice Issued Date-Time: 09/06/2020 9:25 Notice Type: Patient Choice Letter Notice Delivered To: Patient Relationship to Patient: Air Hose Coupler Name: Delivery Method: HAND - Hand Delivered Brina Days: Prior Verbal Notification: Recipient Understood Notice: Yes Recipient Signature: Yes Med Rec Note Co-signed by Attending: Coverage Notice Comment: [facility] Last DP export: 09/06/20 9:08 a Patient Name: OLIVIER REID Page [phone] at 1030 All edits/amendments must be made on the electronic document DICTATION DATE: 09/06/20 1030 CONSTRUCTION CARPENTERS HELPER: YI 09/06/20 1030 RPT#: [id number] DC DATE: STATUS: ADM IN [facility] [address] [place] [address] END OF REPORT
[2020-09-06 12:30] VITALS: BP 108/64
--- NOTE | 2020-09-06 13:33 | NUR ---
PT REPORTS THAT HE DOESN'T FEEL WELL. STATES THAT THIS FEELING IS INSIDE OF HIM. BP 140/80. ALSO STATES THAT HE IS SEEING THINGS FROM HIS PAST OUTSIDE OF HIS WINDOW. VERY PARANOID TOWARDS THIS KOSHER DIETARY SERVICE SUPERVISOR D/T THIS IS HIS FIRST TIME MEETING ME TODAY. O2 2L/NC PLACED BACK ON CLT. WILL CONTINUE TO MONITOR.
[2020-09-06 17:24] VITALS: BP 106/73
[2020-09-06 20:00] VITALS: BP 102/72
--- NOTE | 2020-09-06 20:00 | NUR ---
A&O X 4, SUPINE IN BED, FAMILY @ BEDSIDE. REPORTED CHEST PAIN AND ABDOMINAL DISCOMFORT EARLIER ON IN THE DAY, BUT DENIES THESE FEELINGS AT THE TIME. CTM.
[2020-09-07] VITALS: BP 121/76
--- NOTE | 2020-09-07 00:09 | NUR ---
I have reviewed this patient and I concur with the Shift Assessment completed by the Licensed Practical Nurse today this shift.
[2020-09-07 04:00] VITALS: BP 105/73; BP 89/51
[2020-09-07 07:01] LABS: CALCIUM 8.4 mg/dL (8.5-10.1); CREATININE - SERUM 2.3 mg/dL (0.6-1.3); MAGNESIUM - SERUM 1.8 mg/dL (1.8-2.4); PHOSPHOROUS 4.2 mg/dL (2.5-4.9)
[2020-09-07 07:59] LABS: LYMPHOCYTES 37.3 % (15-50); MCH 27.3 pg (26.0-34.0); MCHC 31.7 g/dL (31.0-37.0); MEAN PLATELET VOLUME 14.2 fL (7.4-10.4); NEUTROPHILS 53.6 % (40-80); PLATELET COUNT 106 10x3/uL (130-400); RBC 4.77 10x6/uL (4.20-6.10); WBC 6.6 10x3/uL (4.8-10.8)
[2020-09-07 08:31] VITALS: BP 136/111
[2020-09-07 12:12] VITALS: BP 99/69
[2020-09-07] MEDS ORDERED: ALDACTONE25 MG PO (14:28)
[2020-09-07] MEDS ORDERED: FLOMAX0.4 MG PO (14:28)
[2020-09-07] MEDS ORDERED: ASPIRIN325 MG PO (14:29)
[2020-09-07] MEDS ORDERED: COREG 3.1253.125 MG PO (14:29)
[2020-09-07] MEDS ORDERED: LEVOFLOXACIN500 MG PO (14:31)
--- NOTE | 2020-09-07 15:02 | MORECARE ---
CASE MANAGEMENT DISCHARGE SUMMARY PATIENT: OLIVIER REID UNIT: [id number] ADM DATE: 09/01/20 AGE: 85 : 34 SEX: M ROOM/BED: D.2209 AUTHOR: RAQUEL ABDALLA PHYSICIAN: REFERRING PHYSICIAN: NIMO HAMILTON MD DATE OF SERVICE: 09/07/20 Discharge Plan Patient Name: OLIVIER REID Facility: [facility]:[place] : 1935 Planned Disposition: Home with Home Health Anticipated Discharge Date: Discharge Date: Expected LOS: Initial Reviewer: [email or web address] Initial Review Date: 09/01/2020 Generated: 09/07/20 4:01 pm Comments DCP- Discharge Planning Updated by [email or web address]: Leisa Drew on 09/07/20 1:[address] PATIENT WILL BE DISCHARGING HOME WITH HOME HEALTH TODAY WITH [facility] DCP- Discharge Planning Updated by [id number]: Leisa Drew on 09/06/20 9:[address] Patient Name: OLIVIER REID Admission Status: ER Accout number: [id number] Admission Date: 09-01-2020 : 1935 Admission Diagnosis: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 CM educated patient on the CM role and verbal consent given by patient to complete assessment. Patient lives at home in a camper on his son's property where he states that he is pretty independent with his care. He still drives at home. He said that his son helps him with his medications. At discharge patient plans to return home and feels this is a safe discharge. CM discussed availability of home health, rehab services, and medical equipment. I spoke with him about inpatient rehab at [facility]. I encouraged him to think about going to rehab. He thinks he is fine to go home and is agreeable to home health. M[facility] with [facility]. He said that his son will be his driver courier home when he is discharge. He has a walker and a cane. IMM served and explained & MALLY signed for [facility]. Patient denied known discharge needs at this time. CM will continue to follow and will assist as needed with dc plans/needs. Microbiology Technician: Leisa Drew DCPIA - Discharge Planning Initial Assessment Updated by [email or web address]: Leisa Drew on 09/06/20 10:03 am * Is the patient Alert and Oriented? Yes * How many steps to enter\exit or inside your home? 3/rails * PCP VA * Pharmacy VA * Preadmission Environment Home with Family * ADLs Partial Dependent * Partial ADLs (Assistance needed) Medication Management * Equipment Cane Rolling Walker * List name and contact numbers for known caregivers / representatives who currently or will assist patient after discharge: ÁNGELA REID ( SON) [phone] * Verbal permission to speak to the caregivers and representatives has been obtained from the patient. N/A * Community resources currently utilized None VA Services * Additional services required to return to the preadmission environment? Yes * Can the patient safely return to the preadmission environment? Yes * Has this patient been hospitalized within the prior 30 days at any hospital? Yes External Providers External Provider: [facility] Next Contact Date: Service Request Date: Service Type: Resolution: Reviewer: Comments: Coverage Notice Reviewer: [id number] - Leisa Drew Notice Issued Date-Time: 09/06/2020 9:25 Notice Type: IM Discharge Notice Notice Delivered To: Patient Relationship to Patient: Drafter Automotive Design Layout Name: Delivery Method: HAND - Hand Delivered Brina Days: Prior Verbal Notification: Recipient Understood Notice: Yes Recipient Signature: Yes Med Rec Note Co-signed by Attending: Coverage Notice Comment: imm served and explained Reviewer: [id number] Denisa Drew Notice Issued Date-Time: 09/06/2020 9:25 Notice Type: Patient Choice Letter Notice Delivered To: Patient Relationship to Patient: Drafter Automotive Design Layout Name: Delivery Method: HAND - Hand Delivered Brina Days: Prior Verbal Notification: Recipient Understood Notice: Yes Recipient Signature: Yes Med Rec Note Co-signed by Attending: Coverage Notice Comment: mally for [facility] Last DP export: 09/06/20 9:30 a Patient Name: OLIVIER REID Page [phone] at 1502 All edits/amendments must be made on the electronic document DICTATION DATE: 09/07/201501 DOPE FIRER: YI 09/07/20 150 RPT#: [id number] DC DATE: STATUS: ADM IN [facility] [address] [place] [address] END OF REPORT
--- NOTE | 2020-09-07 15:56 | MORECARE ---
CASE MANAGEMENT DISCHARGE SUMMARY PATIENT: OLIVIER REID UNIT: [id number] ADM DATE: 09/01/20 AGE: 85 : 34 SEX: M ROOM/BED: D.2209 AUTHOR: RAQUEL ABDALLA PHYSICIAN: REFERRING PHYSICIAN: NIMO HAMILTON MD DATE OF SERVICE: 09/07/20 Discharge Plan Patient Name: OLIVIER REID Facility: [facility]:[place] : 1935 Planned Disposition: Home with Home Health Anticipated Discharge Date: Discharge Date: Expected LOS: Initial Reviewer: [email or web address] Initial Review Date: 09/01/2020 Generated: 09/07/20 4:55 pm Comments DCP- Discharge Planning Updated by [email or web address]: Leisa Drew on 09/07/20 1:[address] PATIENT WILL BE DISCHARGING HOME WITH HOME HEALTH TODAY WITH [facility] DCP- Discharge Planning Updated by [id number]: Leisa Drew on 09/06/20 9:[address] Patient Name: OLIVIER REID Admission Status: ER Accout number: [id number] Admission Date: 09-01-2020 : 1935 Admission Diagnosis: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 CM educated patient on the CM role and verbal consent given by patient to complete assessment. Patient lives at home in a camper on his son's property where he states that he is pretty independent with his care. He still drives at home. He said that his son helps him with his medications. At discharge patient plans to return home and feels this is a safe discharge. CM discussed availability of home health, rehab services, and medical equipment. I spoke with him about inpatient rehab at [facility]. I encouraged him to think about going to rehab. He thinks he is fine to go home and is agreeable to home health. MALLY with [facility]. He said that his son will be his solo truck driver home when he is discharge. He has a walker and a cane. IMM served and explained & MALLY signed for [facility]. Patient denied known discharge needs at this time. CM will continue to follow and will assist as needed with dc plans/needs. Traffic Rate Analyst: Leisa Drew DCPIA - Discharge Planning Initial Assessment Updated by [id number]: Leisa Drew on 09/06/20 10:03 am * Is the patient Alert and Oriented? Yes * How many steps to enter\exit or inside your home? 3/rails * PCP VA * Pharmacy VA * Preadmission Environment Home with Family * ADLs Partial Dependent * Partial ADLs (Assistance needed) Medication Management * Equipment Cane Rolling Walker * List name and contact numbers for known caregivers / representatives who currently or will assist patient after discharge: ÁNGELA REID ( SON) [phone] * Verbal permission to speak to the caregivers and representatives has been obtained from the patient. N/A * Community resources currently utilized None VA Services * Additional services required to return to the preadmission environment? Yes * Can the patient safely return to the preadmission environment? Yes * Has this patient been hospitalized within the prior 30 days at any hospital? Yes External Providers External Provider: Carmen Next Contact Date: Service Request Date: Service Type: Resolution: Reviewer: Comments: External Provider: OTHER-OTHER Next Contact Date: Service Request Date: Service Type: Resolution: Reviewer: Comments: Coverage Notice Reviewer: [id number] Denisa Drew Notice Issued Date-Time: 09/06/2020 9:25 Notice Type: IM Discharge Notice Notice Delivered To: Patient Relationship to Patient: Head Machinist Name: Delivery Method: HAND - Hand Delivered Brina Days: Prior Verbal Notification: Recipient Understood Notice: Yes Recipient Signature: Yes Med Rec Note Co-signed by Attending: Coverage Notice Comment: imm served and explained Reviewer: [id number] Denisa Drew Notice Issued Date-Time: 09/06/2020 9:25 Notice Type: Patient Choice Letter Notice Delivered To: Patient Relationship to Patient: Head Machinist Name: Delivery Method: HAND - Hand Delivered Brina Days: Prior Verbal Notification: Recipient Understood Notice: Yes Recipient Signature: Yes Med Rec Note Co-signed by Attending: Coverage Notice Comment: mally for [facility] Last DP export: 09/07/20 2:02 p Patient Name: OLIVIER REID Page [phone] at 1556 All edits/amendments must be made on the electronic document DICTATION DATE: 09/07/201554 COMPUTER FORENSIC EXAMINER: YI 09/07/201554 RPT#: [id number] DC DATE: STATUS: ADM IN [facility] [address] [place] [address] END OF REPORT
[2020-09-07 16:05] VITALS: BP 104/62
--- NOTE | 2020-09-07 16:05 | MORECARE ---
CASE MANAGEMENT DISCHARGE SUMMARY PATIENT: OLIVIER REID UNIT: [id number] ADM DATE: 09/01/20 AGE: 85 : 34 SEX: M ROOM/BED: D.2209 AUTHOR: RMDOC PHYSICIAN: REFERRING PHYSICIAN: NIMO HAMILTON MD DATE OF SERVICE: 09/07/20 Discharge Plan Patient Name: OLIVIER REID Facility: [facility]:[place] : 1935 Planned Disposition: Home with Home Health Anticipated Discharge Date: Discharge Date: Expected LOS: Initial Reviewer: [email or web address] Initial Review Date: 09/01/2020 Generated: 09/07/20 5:04 pm Comments DCP- Discharge Planning Updated by [id number]: Leisa Drew on 09/07/20 2:[address] PATIENT POX WAS 79% ON ROOM AIR B2B SALES EXECUTIVE NOTIFIED BY PATIENT'S NURSE WALK TEST COMPLETED POX INCREASED TO 99% ON 3 LITERS ORDER FAXED TO [facility] AND I SPOKE WITH JOSEPH AND THEY WILL DELIVER A TANK TO THE HOSPITAL AND SET UP HOME O2 TO BE DELIVERED TO HIS HOME DCP- Discharge Planning Updated by [id number]: Leisa Drew on 09/07/20 1:[address] PATIENT WILL BE DISCHARGING HOME WITH HOME HEALTH TODAY WITH [facility] DCP- Discharge Planning Updated by [id number]: Leisa Drew on 09/06/20 9:[address] Patient Name: OLIVIER REID Admission Status: ER Accout number: [id number] Admission Date: 09-01-2020 : 1935 Admission Diagnosis: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 CM educated patient on the CM role and verbal consent given by patient to complete assessment. Patient lives at home in a camper on his son's property where he states that he is pretty independent with his care. He still drives at home. He said that his son helps him with his medications. At discharge patient plans to return home and feels this is a safe discharge. CM discussed availability of home health, rehab services, and medical equipment. I spoke with him about inpatient rehab at [facility]. I encouraged him to think about going to rehab. He thinks he is fine to go home and is agreeable to home health. MALLY with [facility]. He said that his son will be his regional owner operator truck driver home when he is discharge. He has a walker and a cane. IMM served and explained & MALLY signed for [facility] . Patient denied known discharge needs at this time. CM will continue to follow and will assist as needed with dc plans/needs. Ping Pong Table Assembler: Leisa Drew DCPIA - Discharge Planning Initial Assessment Updated by [id number]: Leisa Drew on 09/06/20 10:03 am * Is the patient Alert and Oriented? Yes * How many steps to enter\exit or inside your home? 3/rails * PCP VA * Pharmacy VA * Preadmission Environment Home with Family * ADLs Partial Dependent * Partial ADLs (Assistance needed) Medication Management * Equipment Cane Rolling Walker * List name and contact numbers for known caregivers / representatives who currently or will assist patient after discharge: ÁNGELA REID ( SON) [phone] * Verbal permission to speak to the caregivers and representatives has been obtained from the patient. N/A * Community resources currently utilized None VA Services * Additional services required to return to the preadmission environment? Yes * Can the patient safely return to the preadmission environment? Yes * Has this patient been hospitalized within the prior 30 days at any hospital? Yes Coverage Notice Reviewer: [email or web address] Denisa Drew Notice Issued Date-Time: 09/06/2020 9:25 Notice Type: IM Discharge Notice Notice Delivered To: Patient Relationship to Patient: Stunner Animal Name: Delivery Method: HAND - Hand Delivered Brina Days: Prior Verbal Notification: Recipient Understood Notice: Yes Recipient Signature: Yes Med Rec Note Co-signed by Attending: Coverage Notice Comment: imm served and explained Reviewer: [id number] Denisa Drew Notice Issued Date-Time: 09/06/2020 9:25 Notice Type: Patient Choice Letter Notice Delivered To: Patient Relationship to Patient: Stunner Animal Name: Delivery Method: HAND - Hand Delivered Brina Days: Prior Verbal Notification: Recipient Understood Notice: Yes Recipient Signature: Yes Med Rec Note Co-signed by Attending: Coverage Notice Comment: mally for [facility] Last DP export: 09/07/20 2:56 p Patient Name: OLIVIER REID Page [phone] at 1605 All edits/amendments must be made on the electronic document DICTATION DATE: 09/07/201603 MANAGER COMPLIANCE: YI 09/07/201603 RPT#: [id number] DC DATE: STATUS: ADM IN [facility] [address] [place] [address] END OF REPORT
--- NOTE | 2020-09-07 16:49 | NUR ---
DISCHARGE CANCELED DUE TO STROKE LIKE SYMPTOMS. ORDERS PUT IN BY PROVIDOR. WILL CONTINUE TO MONITOR.
--- NOTE | 2020-09-07 16:51 | NUR ---
EKG PERFORMED READING SR WITH PREMATURE SUPRAVENTRICULAR COMPLEXES, RBBB, ANTEROLATERAL INFARCT. PAGED DR. GAUTHIER TO INFORM OF EKG AND PATIENT CONDITION.
--- NOTE | 2020-09-07 17:03 | MORECARE ---
CASE MANAGEMENT DISCHARGE SUMMARY PATIENT: OLIVIER REID UNIT: [id number] ADM DATE: 09/01/20 AGE: 85 : 34 SEX: M ROOM/BED: D.2209 AUTHOR: RMDOC PHYSICIAN: REFERRING PHYSICIAN: NIMO HAMILTON MD DATE OF SERVICE: 09/07/20 Discharge Plan Patient Name: OLIVIER REID Facility: [facility]:[place] : 1935 Planned Disposition: Home with Home Health Anticipated Discharge Date: Discharge Date: Expected LOS: Initial Reviewer: [email or web address] Initial Review Date: 09/01/2020 Generated: 09/07/20 6:02 pm Comments DCP- Discharge Planning Updated by [email or web address]: Leisa Drew on 09/07/20 4:[address] patient's discharge has been cancelled, his portable o2 has been delivered to him room that he will be going home DCP- Discharge Planning Updated by [id number]: Leisa Drew on 09/07/20 2:[address] PATIENT POX WAS 79% ON ROOM AIR CROCHET MACHINE OPERATOR NOTIFIED BY PATIENT'S NURSE WALK TEST COMPLETED POX INCREASED TO 99% ON 3 LITERS ORDER FAXED TO [facility] AND I SPOKE WITH JOSEPH AND THEY WILL DELIVER A TANK TO THE HOSPITAL AND SET UP HOME O2 TO BE DELIVERED TO HIS HOME DCP- Discharge Planning Updated by [id number]: Leisa Drew on 09/07/20 1:[address] PATIENT WILL BE DISCHARGING HOME WITH HOME HEALTH TODAY WITH [facility] DCP- Discharge Planning Updated by [id number]: Leisa Drew on 09/06/20 9:[address] Patient Name: OLIVIER REID Admission Status: ER Accout number: [id number] Admission Date: 09-01-2020 : 1935 Admission Diagnosis: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 CM educated patient on the CM role and verbal consent given by patient to complete assessment. Patient lives at home in a camper on his son's property where he states that he is pretty independent with his care. He still drives at home. He said that his son helps him with his medications. At discharge patient plans to return home and feels this is a safe discharge. CM discussed availability of home health, rehab services, and medical equipment. I spoke with him about inpatient rehab at [facility]. I encouraged him to think about going to rehab. He thinks he is fine to go home and is agreeable to home health. MALLY with [facility]. He said that his son will be his restaurant delivery driver home when he is discharge. He has a walker and a cane. IMM served and explained & MALLY signed for [facility] . Patient denied known discharge needs at this time. CM will continue to follow and will assist as needed with dc plans/needs. Senior Premium Auditor: Leisa Drew DCPIA - Discharge Planning Initial Assessment Updated by [id number]: Leisa Drew on 09/06/20 10:03 am * Is the patient Alert and Oriented? Yes * How many steps to enter\exit or inside your home? 3/rails * PCP VA * Pharmacy VA * Preadmission Environment Home with Family * ADLs Partial Dependent * Partial ADLs (Assistance needed) Medication Management * Equipment Cane Rolling Walker * List name and contact numbers for known caregivers / representatives who currently or will assist patient after discharge: ÁNGELA REID ( SON) [phone] * Verbal permission to speak to the caregivers and representatives has been obtained from the patient. N/A * Community resources currently utilized None VA Services * Additional services required to return to the preadmission environment? Yes * Can the patient safely return to the preadmission environment? Yes * Has this patient been hospitalized within the prior 30 days at any hospital? Yes Coverage Notice Reviewer: [id number] Denisa Drew Notice Issued Date-Time: 09/06/2020 9:25 Notice Type: IM Discharge Notice Notice Delivered To: Patient Relationship to Patient: Foundry Process Engineer Name: Delivery Method: HAND - Hand Delivered Brina Days: Prior Verbal Notification: Recipient Understood Notice: Yes Recipient Signature: Yes Med Rec Note Co-signed by Attending: Coverage Notice Comment: imm served and explained Reviewer: [id number] Denisa Drew Notice Issued Date-Time: 09/06/2020 9:25 Notice Type: Patient Choice Letter Notice Delivered To: Patient Relationship to Patient: Foundry Process Engineer Name: Delivery Method: HAND - Hand Delivered Brina Days: Prior Verbal Notification: Recipient Understood Notice: Yes Recipient Signature: Yes Med Rec Note Co-signed by Attending: Coverage Notice Comment: [facility] for [facility] Last DP export: 09/07/20 3:05 p Patient Name: OLIVIER REID Page [phone] at 1703 All edits/amendments must be made on the electronic document DICTATION DATE: 09/07/201701 REHAB AIDE: YI 09/07/201701 RPT#: [id number] DC DATE: STATUS: ADM IN [facility] [address] [place] [address] END OF REPORT
[2020-09-07 17:08] LABS: CKMB 1.4 U/L (0.0-3.6); CREATINE KINASE 71 UL (21-232); PRO BNP 4464 pg/mL (0-450)
[2020-09-07 20:00] VITALS: BP 108/75
[2020-09-07 23:15] LABS: CKMB 1.2 U/L (0.0-3.6); CREATINE KINASE 94 UL (21-232)
[2020-09-07 23:17] LABS: TROPONIN-I 0.225 ng/mL (0.000-0.060)
[2020-09-08 04:00] VITALS: BP 110/74
[2020-09-08 06:15] LABS: BASOPHILS 0.2 % (0-2); EOSINOPHILS 0.6 % (0-7); HEMATOCRIT 41.9 % (42.0-54.0); HEMOGLOBIN 13.4 g/dL (13.5-17.5); IMMATURE GRANULOCYTES 0.2 % (0-5); LYMPHOCYTE ABS# 2.42 10x3/uL (1.32-3.57); LYMPHOCYTES 37.8 % (15-50); MCH 26.7 pg (26.0-34.0); MONOCYTES 10.2 % (2-11); NEUTROPHIL ABS# 3.27 10x3/uL (1.78-5.38); RBC 5.01 10x6/uL (4.20-6.10); RDW 15.4 % (11.5-14.5); WBC 6.4 10x3/uL (4.8-10.8)
[2020-09-08 06:22] LABS: ALBUMIN 2.8 g/dL (3.4-5.0); ALKALINE PHOSPHATASE 141 U/L (30-120); ALT (SGPT) 42 U/L (10-68); BILIRUBIN - TOTAL 1.31 mg/dL (0.2-1.3); CALC OSMOLALITY 285 mosm/kg (275-300); CALCIUM 8.3 mg/dL (8.5-10.1); CARBON DIOXIDE 26.6 mmol/L (21.0-32.0); CHLORIDE - SERUM 104 mmol/L (98-107); CKMB 1.1 U/L (0.0-3.6); CREATINE KINASE 45 UL (21-232); CREATININE - SERUM 2.5 mg/dL (0.6-1.3); GLUCOSE 103 mg/dL (74-106); MCV 83.6 fL (80.0-100.0); PLATELET COUNT 143 10x3/uL (130-400); POTASSIUM - SERUM 4.6 mmol/L (3.5-5.1); PROTEIN - SERUM 6.5 g/dL (6.4-8.2); SODIUM 138 mmol/L (136-145); UREA NITROGEN 41 mg/dL (7-18); eGFR NON AFRICAN AMERICAN 26 mL/min (90-120)
[2020-09-08 06:57] LABS: TROPONIN-I 0.205 ng/mL (0.000-0.060)
--- NOTE | 2020-09-08 07:20 | NUR ---
REC'D IN BED RESTING WITH EYES CLOSED EASILY TO AROUSED WHEN NAME IS CALLED. RESP EVEN AND UNLABORED WITH NO DISTRESS NOTED. CAN EXPRESS NEEDS AND WANTS. NO C/O NOTED OR VOICED. ASSESSMENT COMPLETED. C/L IN REACH AT BEDSIDE.
[2020-09-08 08:33] VITALS: BP 109/77
[2020-09-08 11:59] VITALS: Ht 177.8 cm; Wt 95.3 kg
--- NOTE | 2020-09-08 13:29 | NUR ---
Nutrition follow-up: Pt receiving a low sodium diet with po intake ~25% of meals Labs reviewed Wt: 209# PO intake is poor at this time Recommendations: Pt may benefit from an appetite stimulant RDN follow-up: 09/12/20
[2020-09-08 14:00] VITALS: BP 107/68
[2020-09-08 17:07] VITALS: BP 101/69
--- NOTE | 2020-09-08 17:20 | NUR ---
I have reviewed this patient and I concur with the Shift Assessment completed by the Licensed Practical Nurse today this shift.
[2020-09-08 20:21] VITALS: BP 92/69
[2020-09-09 00:22] VITALS: BP 99/72
[2020-09-09 05:26] VITALS: BP 104/73
[2020-09-09 05:39] LABS: BASOPHILS 0 % (0-2); EOSINOPHILS 0.1 % (0-7); HEMATOCRIT 41.8 % (42.0-54.0); HEMOGLOBIN 13.5 g/dL (13.5-17.5); IMMATURE GRANULOCYTES 0.4 % (0-5); LYMPHOCYTE ABS# 2.15 10x3/uL (1.32-3.57); LYMPHOCYTES 28.7 % (15-50); MCH 26.8 pg (26.0-34.0); MCHC 32.3 g/dL (31.0-37.0); MCV 83.1 fL (80.0-100.0); MONOCYTES 12.7 % (2-11); NEUTROPHIL ABS# 4.35 10x3/uL (1.78-5.38); NEUTROPHILS 58.1 % (40-80); RBC 5.03 10x6/uL (4.20-6.10); RDW 15.5 % (11.5-14.5); WBC 7.5 10x3/uL (4.8-10.8)
[2020-09-09 05:51] LABS: PLATELET COUNT 192 10x3/uL (130-400)
[2020-09-09 08:10] VITALS: BP 105/69
[2020-09-09 08:33] LABS: ALBUMIN 2.9 g/dL (3.4-5.0); BILIRUBIN - TOTAL 1.47 mg/dL (0.2-1.3)
[2020-09-09 09:11] LABS: ANION GAP 18.9 mmol/L (8-16); CALCIUM 8.5 mg/dL (8.5-10.1); CARBON DIOXIDE 20.3 mmol/L (21.0-32.0); CREATININE - SERUM 3.1 mg/dL (0.6-1.3); POTASSIUM - SERUM 5.2 mmol/L (3.5-5.1); PROTEIN - SERUM 6.5 g/dL (6.4-8.2)
--- NOTE | 2020-09-09 09:24 | NUR ---
ALERT AND ORIENTED. ASSESSMENT COMPLETE. DENIES NEEDS. BED LOW. CALL GUTIERREZ AND PERSONAL ITEMS IN REACH. WILL CONTINUE TO MONITOR.
--- NOTE | 2020-09-09 10:56 | NUR ---
PATIENT'S SON CALLED TO SEE IF PATIENT ABLE TO DISCHARGE. SPOKE WITH DEBORA JARA WHO STATES DC IS STILL ON HOLD. STATES PATIENT'S CREATININE IS 3 AND NEEDS IV FLUIDS BUT REFUSES TO RECEIVE FLUIDS OR TREATMENT. STATES WILL CALL PATIENT'S SON TO DISCUSS FURTHER PLANS.
[2020-09-09 11:59] VITALS: BP 106/64
--- NOTE | 2020-09-09 13:18 | NUR ---
PT IN BED SUPINE WITH EYES CLOSED, BREATHING EVEN AND NONLABORED. AROUSES TO VOICE AND LIGHT STIMULI. IMMEDIATELY BACK TO SLEEP. BED IN LOWEST POSITION, BED RAILS X2, CALL LIGHT WITHIN REACH. WILL CONTINUE POC.
--- NOTE | 2020-09-09 16:38 | NUR ---
PT AGREED TO TAKING PILL. UNABLE TO HANG ABX DUE TO IV BEING OUT. PT IS NOT AGREEING TO ANOTHER IV AT THIS TIME. BED IN LOWEST POSITION, BED RAILS X2, CALL LIGHT WITHIN REACH. WILL CONTINUE POC.
[2020-09-09 17:21] VITALS: BP 102/57
--- NOTE | 2020-09-09 19:13 | NUR ---
PT WANTING TO LEAVE AMA. SON IS HERE AND AGREEING TO TAKE PT HOME. INFORMED PATIENT AND SON OF POSSIBLE OUTCOMES OF LEAVING AMA. THEY ARE UNDERSTANDING AND STILL WANTING LEAVE. WILL HAVE THEM SIGN PAPERS.
--- NOTE | 2020-09-09 19:35 | NUR ---
PT REFUSING ALL TREATMENTS. STATES HE WANTS TO GO HOME. SON IS HERE, SAYS HE IS TAKING PT HOME. TOLD PT AND SON THAT MEDICAL PERSONNEL DO NOT ADVISE LEAVING HOSPITAL AT THIS TIME. PT AND SON VERABIZED UNDERSTANDING AND SIGNED AMA FORM. REMOVED RIGHT AC IV CATHETER INTACT.
--- NOTE | 2020-09-11 07:30 | MORECARE ---
CASE MANAGEMENT DISCHARGE SUMMARY PATIENT: OLIVIER REID UNIT: [id number] ADM DATE: 09/01/20 AGE: 85 : 34 SEX: M ROOM/BED: D.2209 AUTHOR: RAQUEL ABDALLA PHYSICIAN: REFERRING PHYSICIAN: NIMO HAMILTON MD DATE OF SERVICE: 09/11/20 Discharge Plan Patient Name: OLIVIER REID Facility: [facility]:[place] : 1935 Planned Disposition: Home with Home Health Anticipated Discharge Date: Discharge Date: 09/09/2020 Expected LOS: Initial Reviewer: [email or web address] Initial Review Date: 09/01/2020 Generated: 09/11/20 8:30 am Comments DCP- Discharge Planning Updated by [email or web address]: Leisa Drew on 09/07/20 4:[address] patient's discharge has been cancelled, his portable o2 has been delivered to him room that he will be going home DCP- Discharge Planning Updated by [email or web address]: Leisa Drew on 09/07/20 2:[address] PATIENT POX WAS 79% ON ROOM [facility] [employer] OR DISTRICT OFFICE DIRECTOR NOTIFIED BY PATIENT'S NURSE WALK TEST COMPLETED POX INCREASED TO 99% ON 3 LITERS [facility] SPOKE WITH [facility] AND THEY WILL DELIVER A TANK TO THE HOSPITAL AND SET UP HOME O2 TO BE DELIVERED TO HIS HOME DCP- Discharge Planning Updated by [email or web address]: Leisa Drew on 09/07/20 1:[address] PATIENT WILL BE DISCHARGING HOME WITH HOME HEALTH TODAY WITH [facility] DCP- Discharge Planning Updated by [email or web address]: Leisa Drew on 09/06/20 9:[address] Patient Name: OLIVIER REID Admission Status: ER Accout number: [id number] Admission Date: 09-01-2020 : 1935 Admission Diagnosis: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 CM educated patient on the CM role and verbal consent given by patient to complete assessment. Patient lives at home in a camper on his son's property where he states that he is pretty independent with his care. He still drives at home. He said that his son helps him with his medications. At discharge patient plans to return home and feels this is a safe discharge. CM discussed availability of home health, rehab services, and medical equipment. I spoke with him about inpatient rehab at [facility]. I encouraged him to think about going to rehab. He thinks he is fine to go home and is agreeable to home health. MALLY with Doug with [facility]. He said that his son will be his front end loader driver home when he is discharge. He has a walker and a cane. IMM served and explained & MALLY signed for [facility] . Patient denied known discharge needs at this time. CM will continue to follow and will assist as needed with dc plans/needs. Educational Adviser: Leisa Drew DCPIA - Discharge Planning Initial Assessment Updated by [email or web address]: Leisa Drew on 09/06/20 10:03 am * Is the patient Alert and Oriented? Yes * How many steps to enter\exit or inside your home? 3/rails * [facility]CP [facility] * Pharmacy [facility] * Preadmission Environment Home with Family * ADLs Partial Dependent * Partial ADLs (Assistance needed) Medication Management * Equipment Cane Rolling Walker * List name and contact numbers for known caregivers / representatives who currently or will assist patient after discharge: ÁNGELA REID ( SON) [phone] * Verbal permission to speak to the caregivers and representatives has been obtained from the patient. N/A * Community resources currently utilized None [facility] Services * Additional services required to return to the preadmission environment? Yes * Can the patient safely return to the preadmission environment? Yes * Has this patient been hospitalized within the prior 30 days at any hospital? Yes Coverage Notice Reviewer: [email or web address] Denisa Drew Notice Issued Date-Time: 09/06/2020 9:25 Notice Type: IM Discharge Notice Notice Delivered To: Patient Relationship to Patient: Manufacturing Cost Estimator Name: Delivery Method: HAND - Hand Delivered Brina Days: Prior Verbal Notification: Recipient Understood Notice: Yes Recipient Signature: Yes Med Rec Note Co-signed by Attending: Coverage Notice Comment: imm served and explained Reviewer: [email or web address] Denisa Drew Notice Issued Date-Time: 09/06/2020 9:25 Notice Type: Patient Choice Letter Notice Delivered To: Patient Relationship to Patient: Manufacturing Cost Estimator Name: Delivery Method: HAND - Hand Delivered Brina Days: Prior Verbal Notification: Recipient Understood Notice: Yes Recipient Signature: Yes Med Rec Note Co-signed by Attending: Coverage Notice Comment: mally for [facility] Last DP export: 09/07/20 4:03 p Patient Name: OLIVIER REID Page [id number] at 0730 All edits/amendments must be made on the electronic document DICTATION DATE: 09/11/20729 MEAT PASSER: YI 09/11/20729 RPT#: [id number] DC DATE:09/09/20 STATUS: DIS IN [facility] [address] [place] [address] END OF REPORT
== END 2020-09-09 19:35 | disposition left against medical advice (07) | DRG 280 ==
LOC: D.ER 15:28 → D.EDHOLD 19:10 → D.MS 19:10
PROVIDERS: Family Medicine; Internal Medicine Cardiovascular Disease; Internal Medicine Interventional Cardiology; ADMIT Emergency Medicine; ATTEND Emergency Medicine
PROC: 4A023N7 Measurement of Cardiac Sampling and Pressure, Left Heart, Percutaneous Approach (ICD-10-PCS; 2020-09-04)
PROC: B2151ZZ Fluoroscopy of Left Heart using Low Osmolar Contrast (ICD-10-PCS; 2020-09-04)
PROC: B2111ZZ Fluoroscopy of Multiple Coronary Arteries using Low Osmolar Contrast (ICD-10-PCS; principal; 2020-09-04 09:50)
DX: I13.0 Hypertensive heart and chronic kidney disease with heart failure and stage 1 through stage 4 chronic kidney disease, or unspecified chronic kidney disease (principal); I21.4 Non-ST elevation (NSTEMI) myocardial infarction; I50.33 Acute on chronic diastolic (congestive) heart failure; N17.9 Acute kidney failure, unspecified; N39.0 Urinary tract infection, site not specified; N18.9 Chronic kidney disease, unspecified; M19.90 Unspecified osteoarthritis, unspecified site; E78.5 Hyperlipidemia, unspecified; E87.6 Hypokalemia; R55 Syncope and collapse; I25.119 Atherosclerotic heart disease of native coronary artery with unspecified angina pectoris; E87.5 Hyperkalemia